=== PATIENT | male | born 1995 | race African-American/Black ===

== ENCOUNTER 2017-04-18 13:53 | Emergency (ER) | payer MEDICAID, OTHER ==
[2017-04-18 14:02] VITALS: BP 131/83
--- NOTE | 2017-04-18 14:38 | EDM.PDOC ---
ED HPI GENERAL MEDICAL PROBLEM - General Chief Complaint: Eye Problems Stated Complaint: METHANOL IN EYES AND FACE Time Seen by Provider: 04/18/17 14:03 Source of Information: Reports: Patient History Limitations: Reports: No Limitations - History of Present Illness INITIAL COMMENTS - FREE TEXT/NARRATIVE: The patient got accidentally sprayed in the face with methanol at work. He got some in his eyes and in his mouth. He rinsed his eyes right away. He has no pain in his eyes. His has some blurred vision to the left lateral visual field. He did not swallow the methanol. He has no trouble breathing. Onset: Sudden Duration: Hour(s): (1 1/2 hour) Location: Reports: Face Severity: Moderate Improves with: Reports: None Worsens with: Reports: None Context: Reports: Other (He was at work) Associated Symptoms: Reports: No Other Symptoms - Related Data Allergies Allergy/AdvReac Type Severity Reaction Status Date / Time No Known Allergies Allergy Verified 04/18/17 13:58 Home Meds: Home Meds . [No Known Home Meds] 04/18/17 [History] Past Medical History - Past Health History Medical/Surgical History: Denies Medical/Surgical History - Past Surgical History GI Surgical History: Reports: Appendectomy Social & Family History - Family History Family Medical History: Noncontributory - Tobacco Use Smoking Status *Q: Current Every Day Smoker Years of Tobacco use: 1 Packs/Tins Daily: 0.2 Second Hand Smoke Exposure: Yes - Caffeine Use Caffeine Use: Reports: Soda - Alcohol Use Days Per Week of Alcohol Use: 0 - Recreational Drug Use Recreational Drug Use: No ED ROS GENERAL - Review of Systems Review Of Systems: See Below Constitutional: Reports: No Symptoms HEENT: Reports: Other (Blurred vision to the left lateral visual field) Respiratory: Reports: No Symptoms Cardiovascular: Reports: No Symptoms Endocrine: Reports: No Symptoms GI/Abdominal: Reports: No Symptoms : Reports: No Symptoms Musculoskeletal: Reports: No Symptoms ED EXAM GENERAL W FULL EYE - Physical Exam Exam: See Below Exam Limited By: No Limitations General Appearance: Alert, No Apparent Distress Eye Exam: Bilateral Eye: EOMI, PERRL Visual Acuity (R) 20/: 20 Visual Acuity (L) 20/: 20 With Correction: No Eyelids: Bilateral: Normal Appearance Conjunctiva & Sclera: Bilateral: Normal Appearance Cornea Exam: Bilateral: Normal Appearance Extraocular Movements: Bilateral: Intact Pupillary Size: Bilateral: 4 mm Pupillary Reaction: Bilateral: Brisk Anterior Chamber: Bilateral: Normal Appearance Ears: Normal External Exam Nose: Normal Inspection Head: Atraumatic, Normocephalic Neck: Normal Inspection Respiratory/Chest: No Respiratory Distress, Lungs Clear, Normal Breath Sounds Cardiovascular: Regular Rate, Rhythm, No Edema, No Murmur GI/Abdominal: Soft, Non-Tender, No Organomegaly, No Mass Back Exam: Normal Inspection Neurological: Alert, Oriented, No Motor/Sensory Deficits Course - Vital Signs Last Recorded V/S: Last Vital Signs Temp 98.1 F 04/18/17 13:59 Pulse 68 04/18/17 13:59 Resp BP 131/83 04/18/17 13:59 Pulse Ox 98 04/18/17 13:59 - Re-Assessments/Exams Free Text/Narrative Re-Assessment/Exam: 04/18/17 14:38 I called poison control and they recommended doing a slit lamp exam with fluress. He was already irrigated. The slit lamp looked good. He had 20/20 vision. Departure - Departure Time of Disposition: 14:40 Disposition: Home, Self-Care 01 Condition: Good Clinical Impression: Chemical exposure of eye - Discharge Information Referrals: PCP,None [Primary Care Provider] - Forms: ED Department Discharge, ED Return to Work/School Form Additional Instructions: Please return if you are worse.
== END 2017-04-18 15:00 | disposition home or self-care (01) ==
LOC: JD.ED 13:53
DX: Z77.098 Contact with and (suspected) exposure to other hazardous, chiefly nonmedicinal, chemicals (principal); F17.210 Nicotine dependence, cigarettes, uncomplicated; Y99.0 Civilian activity done for income or pay
CPT/HCPCS: 99283